=== PATIENT | male | born 1990 | race Caucasian/White ===

== ENCOUNTER 2021-09-29 09:38 | Emergency (ER) | payer OTHER ==
[~2021-09-29] VITALS: Ht 165.1 cm; Wt 77.3 kg
[2021-09-29 09:55] VITALS: TEMP 98.9
[2021-09-29 11:04] VITALS: BP 130/86; PULSE 59
== END 2021-09-29 11:07 | disposition home or self-care (01) ==
LOC: COL.ER 09:38
DX: S61.011A Laceration without foreign body of right thumb without damage to nail, initial encounter (principal); W26.0XXA Contact with knife, initial encounter; Y93.G1 Activity, food preparation and clean up